=== PATIENT | female | born 1995 | race Asian ===

== ENCOUNTER 2018-04-25 18:13 | Emergency (ER) | payer OTHER ==
[~2018-04-25] VITALS: Ht 157.5 cm; Wt 75.0 kg
[2018-04-25 18:13] VITALS: BP 125/68
[2018-04-25] MEDS ORDERED: birth control pill (18:22)
== END 2018-04-25 19:21 | disposition home or self-care (01) ==
LOC: M ED 18:13
DX: S70.351A Superficial foreign body, right thigh, initial encounter (principal)